=== PATIENT | female | born 1985 | race Caucasian/White ===

== ENCOUNTER 2019-01-30 17:15 | Emergency (ER) | payer SELFPAY ==
[~2019-01-30] VITALS: Ht 167.6 cm; Wt 65.8 kg
[2019-01-30] MEDS ORDERED: RT-ALBUTEROL/IPRATROPIUM 3 ML (DUONEB) VIAL ONE (17:25)
[2019-01-30] MEDS ORDERED: methylPREDNISolone 125 MG (Solu-MEDROL) VIAL IVP ONE (18:00)
[2019-01-30] MEDS ORDERED: RT-ALBUTEROL/IPRATROPIUM 3 ML (DUONEB) VIAL INH ONE ×2 (18:00→19:15)
[2019-01-30 18:21] LABS: HEMATOCRIT 42 % (35-52); HEMOGLOBIN 14.3 G/DL (11.5-16.0); MEAN CORPUSCULAR HEMOGLOBIN 30 PG (25-34); MEAN CORPUSCULAR VOLUME 87 FL (80-99); WHITE BLOOD COUNT 6.6 10^3/uL (4.3-11.0)
[2019-01-30 18:22] LABS: BASOPHILS # (AUTO) 0.1 10^3/uL (0.0-0.1); BASOPHILS % (AUTO) 1 % (0-10); EOSINOPHILS # (AUTO) 0.8 10^3/uL (0.0-0.3); EOSINOPHILS % (AUTO) 12 % (0-10); LYMPHOCYTES # (AUTO) 1.9 X 10^3 (1.0-4.0); LYMPHOCYTES % (AUTO) 30 % (12-44); MEAN CORPUSCULAR HGB CONC 34 G/DL (32-36); MEAN PLATELET VOLUME 9.8 FL (7.4-10.4); MONOCYTES # (AUTO) 0.5 X 10^3 (0.0-1.0); MONOCYTES % (AUTO) 7 % (0-12); NEUTROPHILS # (AUTO) 3.3 X 10^3 (1.8-7.8); NEUTROPHILS % (AUTO) 51 % (42-75); PLATELET COUNT 296 10^3/uL (130-400); RED CELL DISTRIBUTION WIDTH 12.7 % (10.0-14.5)
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
[2019-01-30] MEDS: RT-ALBUTEROL SULF 2.5 MG/3 ML PRE-MIX VIAL INH SCH ×2 (18:23→19:05)
--- NOTE | 2019-01-30 18:30 | Diagnostic Imaging Report ---
INDICATION: Shortness of breath. EXAMINATION: Chest, one view at 5:42 p.m. COMPARISON: There are no prior studies available for comparison. FINDINGS: The heart size is within normal limits. There is a vague area of increased density about the right hilum. This finding is questionable for mild pneumonia/atelectasis. The lungs are otherwise generally clear and well aerated. There is no pleural effusion identified. The mediastinum is not widened. The osseous structures are intact. IMPRESSION: 1. There is a question of mild pneumonia/atelectasis about the right hilum. Clinical followup is recommended. 2. There is no acute cardiopulmonary abnormality identified otherwise. Dictated by: Dictated on workstation # [id number]
[2019-01-30 18:42] LABS: BAND NEUTROPHILS 0 %; BASOPHILS % (MANUAL) 2 %; EOSINOPHILS % (MANUAL) 9 %; LYMPHOCYTES % (MANUAL) 32 %; MONOCYTES % (MANUAL) 5 %; NEUTROPHILS % (MANUAL) 52 %
[2019-01-30 18:56] VITALS: BP 135/80
[2019-01-30 19:03] LABS: CHLORIDE 102 MMOL/L (98-107); POTASSIUM 3.7 MMOL/L (3.6-5.0); SODIUM 140 MMOL/L (135-145)
[2019-01-30 19:04] LABS: ALANINE AMINOTRANSFERASE 21 U/L (0-55); ALKALINE PHOSPHATASE 53 U/L (40-136); BILIRUBIN,TOTAL 0.3 MG/DL (0.1-1.0); BUN/CREATININE RATIO 18; CALCIUM 9.8 MG/DL (8.5-10.1); CARBON DIOXIDE 25 MMOL/L (21-32); CREATININE SERUM 1.07 MG/DL (0.60-1.30); GFR ESTIMATED 59; GLUCOSE 118 MG/DL (70-105); TOTAL PROTEIN 7.5 GM/DL (6.4-8.2)
[2019-01-30 19:05] LABS: ALBUMIN 4.8 GM/DL (3.2-4.5)
[2019-01-30] MEDS ORDERED: AZITHROMYCIN 250 MG TAB (ZITHROMAX) PO ONE (19:15)
[2019-01-30 20:31] VITALS: BP 158/99
[2019-01-30] MEDS ORDERED: AZIT250T12 PO (20:33)
[2019-01-30] MEDS ORDERED: PRD20T PO (20:33)
== END 2019-01-30 20:42 | disposition home or self-care (01) ==
LOC: ER FS 17:17
DX: J45.901 Unspecified asthma with (acute) exacerbation (principal); Z88.2 Allergy status to sulfonamides
CPT/HCPCS: 36415; 71045; 80053; 84703; 85007; 85027

== ENCOUNTER 2019-11-25 05:43 | Inpatient (IN) | payer MEDICAID ==
[~2019-11-25] VITALS: Ht 167 cm; Wt 77.3 kg
[2019-11-25] VITALS (47 sets, daily range): BP systolic 107–166; BP diastolic 57–90
[~2019-11-25 05:43] MED LIST: AZIT250T12 PO; PRD20T PO
[2019-11-25] MEDS ORDERED: AMPICILLIN FOR IV USE 2,000 MG in WATER (STERILE) FOR INJECTION 14.8 ML IV SCH (05:48)
[2019-11-25] MEDS ORDERED: OXYTOCIN PRE-MIX DRIP 500 ML IV SCH ×2 (05:48→12:17)
[2019-11-25] MEDS ORDERED: D5 LR IV SOLUTION 1,000 ML IV SCH (05:48)
--- NOTE | 2019-11-25 05:51 | NUR ---
GOINGTERELL presented to unit via from ED, accompanied by S/O, with c/o INDUCTION. GOINGTERELL 39 2/ GEST L weighed, gowned, voided, and to bed. EFHM and TOCO applied, VS taken. TERELL ANDRADE oriented to bed controls, call light, TV, heat, and A/C controls.
--- OUTSIDE RECORDS SUMMARY | 2019-11-25 06:03 | XMS REPORT | Continuity of Care Document ---
Author Organization Unknown Address Unknown Phone Unavailable Allergies Active Description Code Type Severity Reaction Onset Reported/Identified Relationship to Patient Clinical Status Yes SULFA SULFA Unknown Rash 01/30/2019 Medications There is no data. Problems Date Dx Coded Attending Type Code Diagnosis Diagnosed By 02/01/2019 SHILPA BARBA MD, Ot J45.901 UNSPECIFIED ASTHMA WITH (ACUTE) EXACERBA 02/01/2019 SHILPA BARBA MD Ot R06.2 WHEEZING 02/01/2019 SHILPA BARBA MD Ot Z88.2 ALLERGY STATUS TO SULFONAMIDES STATUS 02/07/2019 SHILPA BARBA MD, Ot J45.901 UNSPECIFIED ASTHMA WITH (ACUTE) EXACERBA 02/07/2019 SHILPA BARBA MD Ot R06.2 WHEEZING 02/07/2019 SHILPA BARBA MD Ot Z88.2 ALLERGY STATUS TO SULFONAMIDES STATUS Procedures There is no data. Results Test Result Range Complete blood count (CBC) with automate d white blood cell (WBC) differential - 01/30/19 18:07 Blood leukocytes automated count (number/volume) 6.6 10*3/uL 4.3-11.0 Blood erythrocytes automated count (number/volume) 4.82 10*6/uL 4.35-5.85 Venous blood hemoglobin measurement (mass/volume) 14.3 g/dL 11.5-16.0 Blood hematocrit (volume fraction) 42 % 35-52 Automated erythrocyte mean corpuscular volume 87 [ foz_us] 80-99 Automated erythrocyte mean corpuscular h emoglobin (mass per erythrocyte) 30 pg 25-34 Automated erythrocyte mean corpuscular h emoglobin concentration measurement (mass/volume) 34 g/dL 32-36 Automated erythrocyte distribution width ratio 12. 7 % 10.0- 14.5 Automated blood platelet count (count/volume) 296 10*3/uL 130-400 Automated blood platelet mean volume measurement 9.8 [foz_us] 7.4-10.4 Automated blood neutrophils/100 leukocytes 51 % 42-75 Automated blood lymphocytes/100 leukocytes 30 % 12-44 Blood monocytes/100 leukocytes 7 % 0-12 Automated blood eosinophils/100 leukocytes 12 % 0-10 Automated blood basophils/100 leukocytes 1 % 0-10 Blood neutrophils automated count (number/volume) 3.3 10*3 1.8-7.8 Blood lymphocytes automated count (number/volume) 1.9 10*3 1.0-4.0 Blood monocytes automated count (number/volume) 0. 5 10*3 0.0-1.0 Automated eosinophil count 0.8 10*3/uL 0 .0-0.3 Automated blood basophil count (count/volume) 0.1 10*3/uL 0.0-0.1 Serum or plasma choriogonadotropin (preg thad test) detection - 01/30/19 18:07 Serum or plasma choriogonadotropin ( test) de tection NEGATIVE NEGATIVE Blood manual differential performed dete ction - 01/30/19 18:07 Blood monocytes/100 leukocytes 5 % NRG Manual blood segmented neutrophils/100 leukocytes 52 % NRG Blood band neutrophils/100 leukocytes 0 % NRG Manual blood lymphocytes/100 leukocytes 32 % NRG Manual eosinophils/100 leukocytes in nose 9 % NRG Manual blood basophils/100 leukocytes 2 % NRG Comprehensive metabolic panel - 01/30/19 18:07 Serum or plasma sodium measurement (moles/volume) 140 mmol/L 135-145 Serum or plasma potassium measurement (moles/volume) 3.7 mmol/L 3.6-5.0 Serum or plasma chloride measurement (moles/volume) 102 mmol/L 98-107 Carbon dioxide 25 mmol/L 21-32 Serum or plasma anion gap determination (moles/volume) 13 mmol/L 5-14 Serum or plasma urea nitrogen measurement (mass/volume ) 19 mg/dL 7-18 Serum or plasma creatinine measurement (mass/volume) 1.07 mg/dL 0.60-1.30 Serum or plasma urea nitrogen/creatinine mass ratio 18 NRG Serum or plasma creatinine measurement w ith calculation of estimated glomerular filtration rate 59 NRG Serum or plasma glucose measurement (mass/volume) 118 mg/dL 70-105 Serum or plasma calcium measurement (mass/volume) 9.8 mg/dL 8.5-10.1 Serum or plasma total bilirubin measurement (mass/volu me) 0.3 mg/dL 0.1-1.0 Serum or plasma alkaline phosphatase becki surement (enzymatic activity/volume) 53 U/L 40-136 Serum or plasma aspartate aminotransfera se measurement (enzymatic activity/volume) 17 U/L 5-34 Serum or plasma alanine aminotransferase measurement (enzymatic activity/volume) 21 U/L 0-55 Serum or plasma protein measurement (mass/volume) 7.5 g/dL 6.4-8.2 Serum or plasma albumin measurement (mass/volume) 4.8 g/dL 3.2-4.5 SUREPATH PAP RFX HPV mRNA E6/E7 - 00:00 CLINICAL INFORMATION: NRG LMP: PREG NRG PREV. PAP: NRG PREV. BX: NRG SOURCE: [employer] NRG STATEMENT OF ADEQUACY: NRG INTERPRETATION/RESULT: NRG DIRECTOR OF PROGRAMMING: NRG REVIEW DIRECTOR OF PROGRAMMING: NRG COMMENT NRG SYPHILIS (RPR W/ REFLEX CONFIRMATION) - 04/18/19 11:38 RPR (DX) W/REFL TITER AND CONFIRMATORY TESTING NON-REACTIVE NON-REACTIVE HEP B SURFACE ANTIGEN - 04/18/19 11:38 HEPATITIS B SURFACE ANTIGEN NON-REACTIVE NON-REACTIVE RUBELLA IMMUNE STATUS - 04/18/19 11:38 RUBELLA ANTIBODY (IGG) 4.52 index NRG GLUCOSE MIK 1 HOUR - 09/12/19 15:58 GLUCOSE, POSTPRANDIAL/ 1 HOUR 179 mg/dL See Note: CBC - 09/12/19 15:58 WHITE BLOOD CELL COUNT 8.4 Thousand/uL 3 .8-10.8 RED BLOOD CELL COUNT 3.93 Million/uL 3.8 0-5.10 HEMOGLOBIN 12.1 g/dL 11.7-15.5 HEMATOCRIT 35.0 % 35.0-45.0 MCV 89.1 fL 80.0-100.0 MCH 30.8 pg 27.0-33.0 MCHC 34.6 g/dL 32.0-36.0 RDW 13.0 % 11.0-15.0 PLATELET COUNT 212 Thousand/uL 140-400 MPV 10.6 fL 7.5-12.5 ABSOLUTE NEUTROPHILS 5704 cells/uL 1500- 7800 ABSOLUTE LYMPHOCYTES 1688 cells/uL 850-3 900 ABSOLUTE MONOCYTES 428 cells/uL 200-950 ABSOLUTE EOSINOPHILS 546 cells/uL 15-500 ABSOLUTE BASOPHILS 34 cells/uL 0-200 NEUTROPHILS 67.9 % NRG LYMPHOCYTES 20.1 % NRG MONOCYTES 5.1 % NRG EOSINOPHILS 6.5 % NRG BASOPHILS 0.4 % NRG SYPHILIS (RPR W/ REFLEX CONFIRMATION) - 09/12/19 15:58 RPR (DX) W/REFL TITER AND CONFIRMATORY TESTING NON-REACTIVE NON-REACTIVE GLUCOSE MIK 3 HOUR - 09/16/19 11:30 TIME 1 FASTING NRG SPECIMEN 1 72 mg/dL 65-99 TIME 2 1 HOUR NRG SPECIMEN 2 137 mg/dL NRG TIME 3 2 HOURS NRG SPECIMEN 3 95 mg/dL NRG TIME 4 3 HOURS NRG SPECIMEN 4 98 mg/dL NRG COMMENT NRG CULTURE, GROUP B STREP (VAGINAL) - 11/06 13:36 STREPTOCOCCUS, GROUP B CULTURE SEE NOTE NRG Encounters ACCT No. Visit Date/Time Discharge Status Pt. Type Provider Facility Loc./Unit Complaint [id number] 11/06/2019 13:30:00 11/06/2019 23:59: 59 CLS Outpatient SANDRINE RIVERA [facility] [id number] 11/06/2019 13:30:00 Document Registration [id number] 09/16/2019 08:15:00 Document Registration [id number] 09/12/2019 15:00:00 Document Registration [id number] 04/18/2019 10:45:00 Document Registration [id number] 01/30/2019 17:17:00 019 20:42:00 DIS Outpatient FREDA LOTT, SHILPA Lazo [facility] ER FS SOB [id number] 11/25/2019 06:00:00 P EN Preadmit SEALS DO, DANA E I NDUCTION
[2019-11-25] MEDS ORDERED: CLINDAMYCIN 900 MG/50 ML IVPB 50 ML IV ONE (06:35)
[2019-11-25] MEDS ORDERED: D5 LR IV SOLUTION 1,000 ML IV ONE (06:35)
[2019-11-25 06:55] LABS: BASOPHILS % (AUTO) 0 % (0-10); EOSINOPHILS # (AUTO) 0.1 10^3/uL (0.0-0.3); EOSINOPHILS % (AUTO) 2 % (0-10); HEMATOCRIT 37 % (35-52); HEMOGLOBIN 12.7 G/DL (11.5-16.0); LYMPHOCYTES # (AUTO) 1.9 X 10^3 (1.0-4.0); LYMPHOCYTES % (AUTO) 27 % (12-44); MEAN CORPUSCULAR HEMOGLOBIN 31 PG (25-34); MEAN CORPUSCULAR HGB CONC 34 G/DL (32-36); MEAN CORPUSCULAR VOLUME 89 FL (80-99); MEAN PLATELET VOLUME 10.4 FL (7.4-10.4); MONOCYTES # (AUTO) 0.6 X 10^3 (0.0-1.0); MONOCYTES % (AUTO) 8 % (0-12); NEUTROPHILS # (AUTO) 4.5 X 10^3 (1.8-7.8); NEUTROPHILS % (AUTO) 63 % (42-75); PLATELET COUNT 163 10^3/uL (130-400); WHITE BLOOD COUNT 7.2 10^3/uL (4.3-11.0)
[2019-11-25] MEDS ORDERED: SUFENTA 0.6MCG/ML BUPIVA 0.125 100 ML ONE (06:55)
[2019-11-25] MEDS ORDERED: LIDOCAINE PF 2% 5 ML (XYLOCAINE) VIAL ONE (07:23)
[2019-11-25] MEDS ORDERED: fentaNYL INJECTION 100 MCG/2 ML AMP ONE (07:23)
[2019-11-25] MEDS ORDERED: BUPIVACAINE 0.25% 30 ML (SENSORCAINE) VIAL ONE (07:23)
[2019-11-25] MEDS ORDERED: LACTATED RINGERS 1,000 ML IV SCH (07:24)
[2019-11-25] MEDS ORDERED: EPIDURAL (SUFENTA 0.6MCG/ML BUPIVA 0.125%) 100 ML BAG EPI PRN (07:30)
[2019-11-25] MEDS ORDERED: ONDANSETRON 4 MG/2 ML (SDV) Z0FRAN IV PRN (07:30)
[2019-11-25] MEDS ORDERED: NALOXONE 0.4 MG/ML 1 ML (NARCAN) VIAL IV PRN (07:30)
[2019-11-25] MEDS ORDERED: diphenhydrAMINE 50 MG/ML INJ (BENADRYL) IV PRN (07:30)
[2019-11-25] MEDS ORDERED: AMPICILLIN FOR IV USE 1,000 MG in WATER (STERILE) FOR INJECTION 7.4 ML IV SCH (10:00)
[2019-11-25] MEDS ORDERED: LIDOCAINE 1% INJ 20 ML 20 ML VIAL ONE (11:47)
--- NOTE | 2019-11-25 11:59 | NUR ---
spontaneous delivery of placenta with cord. fundal massage per dr seals. local to perineum per dr seals and repair of midline episotomy per dr seals. 1209 ffu/0 with moderate rubra noted, no clots expressed. 1223 ffu/0 with lt-mod rubra noted, no clots expressed. 1239 ffu/0 with lt-modr rubra noted, no clots expressed. 1302 ffu/0 with lt-mod rubra noted, no clots expressed. 1350 pt eating lunch at this time denies needs.
--- NOTE | 2019-11-25 12:25 | History & Physical-OB/GYN ---
History of Present Illness History of Present Illness Reason for visit/HPI Ms. Tracy is at 39 2/7 weeks gestation, admitted for Pitocin Induction of Labor Date of Admission Nov 25, 2019 at 05:43 Date Seen by a Provider: Nov 25, 2019 Time Seen by a Provider: 09:50 I consulted on this patient on 11/25/19 12:20 Attending Physician Everett Urena DO Admitting Physician Everett Urena DO Consult Allergies and Home Medications Allergies Coded Allergies: Penicillins (Verified Allergy, Unknown, 11/25/19) Uncoded Allergies: SULFA (Allergy, Unknown, Rash, 01/30/19) Home Medications Azithromycin 250 Mg Tablet, 250 MG PO DAILY Prescribed by: SHILPA BACK on 01/30/192032 Prednisone 20 Mg Tab, 40 MG PO DAILY Prescribed by: SHILPA BACK on 01/30/192032 Patient Home Medication List Home Medication List Reviewed: Yes Past Qkgbhyc-Mnfdta-Xkrqnc Hx Patient Social History Marrital Status: Number of Children: 3 Number of living children: 3 Employed/Student: unemployed Alcohol Use: Denies Use Recreational Drug Use: No Smoking Status: Never a Smoker 2nd Hand Smoke Exposure: No Physical Abuse Screen: No Sexual Abuse: No Recent Foreign Travel: No Contact w/other who traveled: No Recent Hopitalizations: No Recent Infectious Disease Expo: No Immunizations Up To Date Pediatric: Yes Seasonal Allergies Seasonal Allergies: Yes Surgeries Yes (Dental) Respiratory No Cardiovascular No Neurological No Reproductive System Expected Date of Delivery: Nov 30, 2019 Genitourinary No Gastrointestinal No Musculoskeletal No Endocrine History of Endocrine Disorders: No HEENT History of HEENT Disorders: No Cancer No Psychosocial History of Psychiatric Problem: Yes Behavioral Health Disorders: Depression Integumentary History of Skin or Integumenta: No Blood Transfusions History of Blood Disorders: No Adverse Reaction to a Blood Tr: No Family Medical History Family Hx: Hypercholesterolemia 19 FATHER 19 MOTHER Review of Systems Constitutional: see HPI Physical Exam Physical Exam Vital Signs Vital Signs Date Time Temp Pulse Resp B/P (MAP) Pulse Ox O2 Delivery O2 Flow Rate FiO2 11/25/19 11:00 63 16 125/76 (92) 96 Room Air 11/25/19 10:55 64 16 127/77 (94) 95 Room Air 11/25/19 10:50 63 16 125/79 (94) 96 Room Air 11/25/19 10:45 36.3 63 16 125/79 (94) 96 Room Air 11/25/19 10:30 Room Air 11/25/19 10:20 67 16 128/78 (95) Room Air 11/25/19 10:15 Room Air 11/25/19 10:05 67 16 122/71 (88) Room Air 11/25/19 10:00 Room Air 11/25/19 09:50 63 16 121/73 (89) Room Air 11/25/19 09:45 Room Air 11/25/19 09:35 69 16 121/73 (89) 11/25/19 09:30 Room Air 11/25/19 09:25 70 16 126/67 (86) 11/25/19 09:15 Room Air 11/25/19 09:05 72 16 126/79 (95) 11/25/19 09:00 Room Air 11/25/19 08:48 69 16 131/68 (89) 11/25/19 08:45 36.3 71 16 123/66 (85) Room Air 11/25/19 08:42 64 16 126/67 (86) 11/25/19 08:39 70 16 137/76 (96) 11/25/19 08:36 74 16 136/67 (90) 11/25/19 08:33 68 16 135/60 (85) 11/25/19 08:30 71 16 134/60 (84) 97 Room Air 11/25/19 08:27 73 16 152/66 (94) 97 11/25/19 08:24 74 16 153/69 (97) 98 11/25/19 08:21 76 16 135/76 (95) 98 11/25/19 08:18 74 16 135/79 (97) 96 11/25/19 08:15 75 16 127/77 (94) 96 Room Air 11/25/19 08:12 74 16 134/86 (102) 96 11/25/19 08:09 78 16 133/84 (100) 96 11/25/19 08:06 76 16 133/90 (104) 96 11/25/19 08:03 81 16 135/61 (85) 97 11/25/19 08:00 90 16 166/70 (102) 96 Room Air 11/25/19 07:55 85 16 123/79 (94) 96 11/25/19 07:50 85 16 128/60 (82) 96 11/25/19 07:45 85 16 136/87 (103) 98 Room Air 11/25/19 07:40 82 16 131/87 (102) 98 11/25/19 07:35 83 16 134/87 (103) 96 11/25/19 07:20 83 16 128/58 (81) 11/25/19 07:05 83 16 113/64 (80) 11/25/19 06:00 36.3 85 16 98 Room Air Capillary Refill : Less Than 3 Seconds Labs Laboratory Tests 11/25/19 06:25: White Blood Count 7.2, Red Blood Count 4.14L, Hemoglobin 12.7, Hematocrit 37, Mean Corpuscular Volume 89, Mean Corpuscular Hemoglobin 31, Mean Corpuscular Hemoglobin Concent 34, Red Cell Distribution Width 13.0, Platelet Count 163, Mean Platelet Volume 10.4, Neutrophils (%) (Auto) 63, Lymphocytes (%) (Auto) 27, Monocytes (%) (Auto) 8, Eosinophils (%) (Auto) 2, Basophils (%) (Auto) 0, Neutrophils # (Auto) 4.5, Lymphocytes # (Auto) 1.9, Monocytes # (Auto) 0.6, Eosinophils # (Auto) 0.1, Basophils # (Auto) 0.0 General Appearance: No Apparent Distress, WD/WN Respiratory: Chest Non Tender, Lungs Clear, Normal Breath Sounds Cardiovascular: Regular Rate, Rhythm, No Murmur Abdominal: normal bowel sounds, non tender Labia: WNL Vagina: WNL Cervix: WNL Cervix OS: open (2 cm/70/-3 Vertex/Intact) Uterus: Enlarged (Gravid) Extremity: Normal Inspection, Non Tender, No Calf Tenderness Assessment/Plan Assessment and Plan Intrauterine at 39 2/7 weeks 2. GBS Positive Plan: Pitocin Induction of Labor. Epidural for antepartum pain management. Cleocin for GBS prophylaxis. I expect a normal spontaneous vaginal delivery. Admission Diagnosis Admission Status: Inpatient Order (span 2 midnights) Reason for Inpatient Admission: Pitocin Induction of Labor at 39 2/7 weeks EVERETT URENA DO Nov 25, 2019 12:25
[2019-11-25] MEDS ORDERED: DIBUCAINE (NUPERCAINAL) 1% OINT 30 GM TOP PRN (12:30)
[2019-11-25] MEDS ORDERED: WITCH HAZEL(TUCKS) 40 EA JAR TOP PRN (12:30)
[2019-11-25] MEDS ORDERED: TETANUS,DIPTH,PERTUSS P/F (BOOSTRIX) 0.5 ML VIAL IM ONE (12:30)
[2019-11-25] MEDS ORDERED: BENZOCAINE/MENTHOL (DERMOPLAST) 60 ML CAN TP PRN (12:30)
[2019-11-25] MEDS ORDERED: MEASLES,MUMPS,RUBELLA 1 EA INJ SQ ONE (12:30)
--- NOTE | 2019-11-25 12:32 | OB Labor & Delivery Record ---
Vag Delivery Note Vag Delivery Note Date of Delivery: 11/25/19 Preoperative Diagnosis: Zenaida Tracy is a (34 /Para / ,Gestational Age (wks)39 2/7 weeks with [Positive GBS] Postoperative Diagnosis: Same Surgeon: DANA BROWN Batch Unloader: [None] Anesthesia: [Epidural and lLocal] Delivery Type: [Normal Spontaneous Vaginal Delivery with Midline Episiotomy and Standard Repair] Findings: [] Viable [Male] , apgars [], weight [6 lbs 13 oz] Lacerations: Midline Episiotomy Intact placenta with 3 vessel cord. No nuchal cord, body cord or shoulder dystocia Estimated Blood Loss: [500] ml Complications: Large amount of blood clots followed delivery along with large clots with the placenta (possible abruption) Condition: Stable Description of Procedure: The patient is a 34 year old female who presented [for Pitocin Induction of Labor]. She was admitted and informed consent was obtained. Her labor course was remarkable for [GBS Positive, possible Placental Abruption] She progressed to complete dilatation and began to push. She was then set up for delivery. The 's head was delivered atraumatically in the [PRATIBHA] position. the head was held below the level of the perineum and the mouth and nares were bulb suctioned. The shoulders and remainder of the infant's body were then delivered without difficulty. The cord was doubly cla mped and cut and the was handed off to the pediatric staff where NRP protocol was followed. An intact placenta with 3-vessel cord delivered via Michelle (large clots accompanied the placenta)and there was found to be minimal bleeding.~ Vigorous fundal massage was performed and the fundus was found to be firm. IV oxytocin was given. Examination of the vagina and perineum revealed a midline episiotomy that was repaired in the usual fashion with 2-0 and 3-0 vicryl suture. Following the repair, sponge, instrument and needle counts were correct. Mom and baby were both in stable condition in the labor suite. Vitals - Labs Vital Signs - I&O Vital Signs Date Time Temp Pulse Resp B/P (MAP) Pulse Ox O2 Delivery O2 Flow Rate FiO2 11/25/19 11:00 63 16 125/76 (92) 96 Room Air 11/25/19 10:55 64 16 127/77 (94) 95 Room Air 11/25/19 10:50 63 16 125/79 (94) 96 Room Air 11/25/19 10:45 36.3 63 16 125/79 (94) 96 Room Air 11/25/19 10:30 Room Air 11/25/19 10:20 67 16 128/78 (95) Room Air 11/25/19 10:15 Room Air 11/25/19 10:05 67 16 122/71 (88) Room Air 11/25/19 10:00 Room Air 11/25/19 09:50 63 16 121/73 (89) Room Air 11/25/19 09:45 Room Air 11/25/19 09:35 69 16 121/73 (89) 11/25/19 09:30 Room Air 11/25/19 09:25 70 16 126/67 (86) 11/25/19 09:15 Room Air 11/25/19 09:05 72 16 126/79 (95) 11/25/19 09:00 Room Air 11/25/19 08:48 69 16 131/68 (89) 11/25/19 08:45 36.3 71 16 123/66 (85) Room Air 11/25/19 08:42 64 16 126/67 (86) 11/25/19 08:39 70 16 137/76 (96) 11/25/19 08:36 74 16 136/67 (90) 11/25/19 08:33 68 16 135/60 (85) 11/25/19 08:30 71 16 134/60 (84) 97 Room Air 11/25/19 08:27 73 16 152/66 (94) 97 11/25/19 08:24 74 16 153/69 (97) 98 11/25/19 08:21 76 16 135/76 (95) 98 11/25/19 08:18 74 16 135/79 (97) 96 11/25/19 08:15 75 16 127/77 (94) 96 Room Air 11/25/19 08:12 74 16 134/86 (102) 96 11/25/19 08:09 78 16 133/84 (100) 96 11/25/19 08:06 76 16 133/90 (104) 96 11/25/19 08:03 81 16 135/61 (85) 97 11/25/19 08:00 90 16 166/70 (102) 96 Room Air 11/25/19 07:55 85 16 123/79 (94) 96 11/25/19 07:50 85 16 128/60 (82) 96 11/25/19 07:45 85 16 136/87 (103) 98 Room Air 11/25/19 07:40 82 16 131/87 (102) 98 11/25/19 07:35 83 16 134/87 (103) 96 11/25/19 07:20 83 16 128/58 (81) 11/25/19 07:05 83 16 113/64 (80) 11/25/19 06:00 36.3 85 16 98 Room Air Labs Laboratory Tests 11/25/19 06:25: White Blood Count 7.2, Red Blood Count 4.14L, Hemoglobin 12.7, Hematocrit 37, Mean Corpuscular Volume 89, Mean Corpuscular Hemoglobin 31, Mean Corpuscular Hemoglobin Concent 34, Red Cell Distribution Width 13.0, Platelet Count 163, Mean Platelet Volume 10.4, Neutrophils (%) (Auto) 63, Lymphocytes (%) (Auto) 27, Monocytes (%) (Auto) 8, Eosinophils (%) (Auto) 2, Basophils (%) (Auto) 0, Neutrophils # (Auto) 4.5, Lymphocytes # (Auto) 1.9, Monocytes # (Auto) 0.6, Eosinophils # (Auto) 0.1, Basophils # (Auto) 0.0 DANA BROWN DO Nov 25, 2019 12:31
[2019-11-25] MEDS ORDERED: IBUPROFEN 600 MG (MOTRIN) TAB PO ONE (13:48)
[2019-11-25] MEDS ORDERED: IBUPROFEN 800 MG (MOTRIN) TAB PO ONE (13:49)
[2019-11-25] MEDS: IBUPROFEN 800 MG (MOTRIN) TAB PO SCH ×2 (13:55→20:28)
[2019-11-25] MEDS ORDERED: CLINDAMYCIN 900 MG/50 ML IVPB 50 ML IV SCH (14:00)
--- NOTE | 2019-11-25 14:40 | NUR ---
ffu/0 with moderate rubra noted on pad. pericare, pad changed and underwear on. gown changed. assisted to wheelchair and transfered to room 309. oriented to room, call light, info packet. denies needs at this time.
[2019-11-25] MEDS: CATHETER FLUSH 10 ML SYR IV SCH ×2 (17:09→20:29)
--- NOTE | 2019-11-25 17:30 | NUR ---
Rn to bedside. assisted up to bathroom, void, pericare, pad changed. assisted back to bed.
[2019-11-25] MEDS: ACETAMINOPHEN 500 MG TAB (TYLENOL) PO SCH (19:05)
[2019-11-25] MEDS: DOCUSATE SODIUM 100 MG (COLACE) CAP PO SCH (20:29)
[2019-11-26] MEDS: ACETAMINOPHEN 500 MG TAB (TYLENOL) PO SCH ×2 (01:57→10:01)
[2019-11-26 01:59] VITALS: BP 126/91
[2019-11-26 02:03] VITALS: BP 126/91
[2019-11-26 04:06] VITALS: BP 107/66
[2019-11-26] MEDS: IBUPROFEN 800 MG (MOTRIN) TAB PO SCH ×2 (04:06→12:41)
[2019-11-26 06:41] LABS: BASOPHILS % (AUTO) 0 % (0-10); EOSINOPHILS # (AUTO) 0.2 10^3/uL (0.0-0.3); EOSINOPHILS % (AUTO) 2 % (0-10); HEMATOCRIT 33 % (35-52); HEMOGLOBIN 11.1 G/DL (11.5-16.0); LYMPHOCYTES % (AUTO) 24 % (12-44); MEAN CORPUSCULAR HEMOGLOBIN 31 PG (25-34); MEAN CORPUSCULAR HGB CONC 34 G/DL (32-36); MEAN CORPUSCULAR VOLUME 90 FL (80-99); MEAN PLATELET VOLUME 10.4 FL (7.4-10.4); MONOCYTES # (AUTO) 0.6 X 10^3 (0.0-1.0); MONOCYTES % (AUTO) 7 % (0-12); NEUTROPHILS # (AUTO) 5.7 X 10^3 (1.8-7.8); NEUTROPHILS % (AUTO) 67 % (42-75); PLATELET COUNT 158 10^3/uL (130-400); RED CELL DISTRIBUTION WIDTH 13.2 % (10.0-14.5); WHITE BLOOD COUNT 8.5 10^3/uL (4.3-11.0)
--- NOTE | 2019-11-26 06:44 | Anesthesia-Regional Post-Op ---
Regional Patient Condition Mental Status: Alert, Oriented x3 Circulation: Same as Pre-Op Headache: Absent Sensation: Full Recovery Motor Block: Absent Post Op Complications Complications None Follow Up Care/Instructions Patient Instructions None needed. Anesthesia/Patient Condition Patient is doing well, no complaints, stable vital signs, no apparent adverse anesthesia problems. No complications reported per nursing. DYLAN GLASS CRNA Nov 26, 2019 06:44
[2019-11-26] MEDS ORDERED: PRENATAL VITAMIN 1 EA TAB PO SCH (07:00)
[2019-11-26] MEDS ORDERED: IBUP-1780 PO (08:16)
[2019-11-26] MEDS ORDERED: ACET-93 PO (08:16)
[2019-11-26] MEDS ORDERED: OXC5T PO (08:16)
[2019-11-26] MEDS ORDERED: DCS100C PO (08:16)
--- NOTE | 2019-11-26 08:22 | Discharge Summary ---
Diagnosis/Chief Complaint Date of Admission Nov 25, 2019 at 05:43 Date of Discharge November 26, 2019 Discharge Date: Nov 26, 2019 Discharge Time: 12:30 Admission Diagnosis Admission Diagnosis Intrauterine at 39 2/7 weeks 2. GBS Positive Discharge Diagnosis Intrauterine at 39 2/7 weeks--delivered 2. GBS Positive Reason Hospital Visit Ms. Tracy is at 39 2/7 weeks gestation, admitted for Pitocin Induction of Labor Discharge Summary Hospital Course Was the Problem List Reviewed?: Yes Hospital Course Ms. Tracy, A0 at 39 2/7 weeks, was admitted to Labor & Delivery for Pitocin Induction of Labor. She received an Epidural for antepartum pain management. I artificially rupture her membranes. She progressed to complete, then after a short course of pushing delivered a healthy viable . After delivery, comfort care measures and pain management were instituted. The remainder of her hospitalization was unremarkable. Her vital signs remained stable throughout her hospitalization. On day #1, we will discharge her to home with instructions, prescriptions and a follow up appointment. Labs Laboratory Tests 11/25/19 06:25: Red Blood Count 4.14L 11/26/19 06:00: Red Blood Count 3.62L, Hemoglobin 11.1L, Hematocrit 33L Procedures None. Discharge Physical Examination Allergies: Coded Allergies: Penicillins (Verified Allergy, Unknown, 11/25/19) Uncoded Allergies: SULFA (Allergy, Unknown, Rash, 01/30/19) Vitals & I&Os Vital Signs Date Time Temp Pulse Resp B/P (MAP) Pulse Ox O2 Delivery O2 Flow Rate FiO2 11/26/19 04:06 36.6 70 20 107/66 (80) 98 Room Air General Appearance: Alert, Oriented X3, Cooperative HEENT: Atraumatic Respiratory: Clear to Auscultation, Normal Air Movement Cardiovascular: Regular Rate, No Murmurs Abdominal: Normal Bowel Sounds, Soft, No Tenderness Extremities: No Clubbing, No Cyanosis Skin: No Rashes Neuro: Normal Gait, Normal Speech Psych/Mental Status: Mental Status NL Discharge Home Medications Reviewed and agree with Discharge Medication list on patient's Discharge Instruction sheet Instructions to Patient/Family Please see electronic discharge instructions given to patient. Clinical Quality Measures DVT/VTE Risk/Contraindication: Risk Factor Score Per Nursin RFS Level Per Nursing on Admit: 1=Low/No VTE PPX DANA BROWN DO Nov 26, 2019 08:22
[2019-11-26 09:30] VITALS: BP 114/76
[2019-11-26] MEDS: DOCUSATE SODIUM 100 MG (COLACE) CAP PO SCH (10:00)
--- NOTE | 2019-11-26 15:25 | NUR ---
TERELL ANDRADE demonstrates understanding of discharge instructions and accurately returns instructions upon questioning. Copy of Post-Discharge Instructions and Medication Discharge Instructions given to patient. TERELL ANDRADE is able to manage continuing needs after discharge. Patients belongings returned to patient. Skin dry and intact; no breakdown noted. Patient discharged from [facility] on 11/26/19 at 1525. TERELL ANDRADE left floor via ambulation, accompanied by and women services staff. No concerns voiced via pt. No s/s of distress. Pt to personal vehicle.
== END 2019-11-26 15:25 | disposition home or self-care (01) | DRG 807 ==
LOC: LDRP 05:43
PROVIDERS: ADMIT Obstetrics & Gynecology; ATTEND Obstetrics & Gynecology
PROC: 10E0XZZ Delivery of Products of Conception, External Approach (ICD-10-PCS; principal; 2019-11-25)
PROC: 0W8NXZZ Division of Female Perineum, External Approach (ICD-10-PCS; 2019-11-25)
PROC: 3E033VJ Introduction of Other Hormone into Peripheral Vein, Percutaneous Approach (ICD-10-PCS; 2019-11-25)
DX: O99.824 Streptococcus B carrier state complicating childbirth (principal); Z37.0 Single live birth; Z3A.39 39 weeks gestation of pregnancy; Z23 Encounter for immunization
CPT/HCPCS: 36415; 85025; 86850; 86900; 86901; 90715

== ENCOUNTER → 2020-02-21 | Outpatient (CLI) | payer MEDICAID ==
[~2020-02-21] MED LIST changes: +ACET-93 PO; +DCS100C PO; +IBUP-1780 PO; +OXC5T PO
[2020-02-21 11:00] LABS: HEMOGLOBIN 13.7 G/DL (11.5-16.0); MEAN CORPUSCULAR HEMOGLOBIN 30 PG (25-34); WHITE BLOOD COUNT 2.3 10^3/uL (4.3-11.0)
[2020-02-21 11:01] LABS: BASOPHILS % (AUTO) 1 % (0-10); EOSINOPHILS # (AUTO) 0.2 10^3/uL (0.0-0.3); EOSINOPHILS % (AUTO) 8 % (0-10); HEMATOCRIT 41 % (35-52); LYMPHOCYTES # (AUTO) 0.7 X 10^3 (1.0-4.0); LYMPHOCYTES % (AUTO) 32 % (12-44); MEAN CORPUSCULAR HGB CONC 34 G/DL (32-36); MEAN CORPUSCULAR VOLUME 89 FL (80-99); MEAN PLATELET VOLUME 9.5 FL (7.4-10.4); MONOCYTES # (AUTO) 0.3 X 10^3 (0.0-1.0); MONOCYTES % (AUTO) 13 % (0-12); NEUTROPHILS % (AUTO) 46 % (42-75); PLATELET COUNT 189 10^3/uL (130-400); RED CELL DISTRIBUTION WIDTH 12.9 % (10.0-14.5)
[2020-02-21 11:23] LABS: BUN/CREATININE RATIO 19; CALCIUM 9.2 MG/DL (8.5-10.1); CARBON DIOXIDE 24 MMOL/L (21-32); CHLORIDE 104 MMOL/L (98-107); CREATININE SERUM 0.74 MG/DL (0.60-1.30); GFR ESTIMATED > 60; GLUCOSE 100 MG/DL (70-105); POTASSIUM 4.2 MMOL/L (3.6-5.0); SODIUM 141 MMOL/L (135-145)
[2020-02-21 11:24] LABS: ALANINE AMINOTRANSFERASE 31 U/L (0-55); ALBUMIN 4.4 GM/DL (3.2-4.5); ALKALINE PHOSPHATASE 74 U/L (40-136); AMYLASE 62 U/L (25-125); BILIRUBIN,TOTAL 0.3 MG/DL (0.1-1.0); LIPASE 42 U/L (8-78); TOTAL PROTEIN 7.1 GM/DL (6.4-8.2)
[2020-02-21 11:36] LABS: BAND NEUTROPHILS 7 %; BASOPHILS % (MANUAL) 0 %; EOSINOPHILS % (MANUAL) 8 %; LYMPHOCYTES % (MANUAL) 36 %; MONOCYTES % (MANUAL) 9 %; NEUTROPHILS % (MANUAL) 37 %; RBC MORPH NORMAL; REACTIVE LYMPHOCYTES 3 %
== END ==
LOC: LAB FS 10:38
PROVIDERS: ATTEND Nurse Practitioner
DX: R10.2 Pelvic and perineal pain (principal)
CPT/HCPCS: 36415; 80053; 82150; 83690; 85007; 85027